=== PATIENT | female | born 1980 | race Caucasian/White ===

== ENCOUNTER 2016-09-20 08:00 | Emergency (ER) | payer BC ==
--- NOTE | 2016-09-20 09:45 | UC ---
Ear Complaint HPI - HPI Summary HPI Summary: The patient comes in today for: 1. Right ear pain: Onset: 7 days. Palliative/provocative: Nothing makes it better or worse. Quality: Ache Region: Right ear. Severity: 2/10 Time: Constant. Associated symptoms: Previous disease: Cerumen impactions in the past. Discharge: None. Hearing: Muffled Perforation hx:None. * - History of Current Complaint Chief Complaint: UCEar Stated Complaint: EAR PAIN Time Seen by Provider: 09/20/16 09:38 Hx Obtained From: Patient Hx Last Menstrual Period: last week - Allergies/Home Medications Allergies/Adverse Reactions: Allergies Allergy/AdvReac Type Severity Reaction Status Date / Time No Known Allergies Allergy Verified 04/17/14 08:20 Home Medications: Home Medications NK [No Home Medications Reported] 09/20/16 [History Confirmed 09/20/16] PMH/Surg Hx/FS Hx/Imm Hx Previously Healthy: Yes Endocrine History Of: Denies: Diabetes, Thyroid Disease, Hyperthyroidism, Hypothyroidism, Dyslipidemia Cardiovascular History Of: Denies: Cardiac Disorders, Hypertension, Pacemaker/ICD, Myocardial Infarction , Congestive Heart Failure, Atrial Fibrillation, Deep Vein Thrombosis, Bleeding Disorders Respiratory History Of: Denies: COPD, Asthma, Bronchitis, Pneumonia, Pulmonary Embolism GI/ History Of: Denies: Gastroesophageal Reflux, Ulcer, Gastrointestinal Bleed, Gall Bladder Disease, Kidney Stones, Diverticulitis, Renal Disease, Urosepsis Neurological History Of: Denies: TIA, CVA, Dementia, Seizures, Migraine Psychological History Of: Denies: Anxiety, Depression, Bipolar Disorder, Schizophrenia, Post Traumatic Stress Disorder Cancer History Of: Denies: Lung Cancer, Colorectal Cancer, Breast Cancer, Prostate Cancer, Cervical Cancer Other History Of: Negative For: HIV, Hepatitis B, Hepatitis C, Anticoagulant Therapy - Surgical History Surgical History: None - Family History Known Family History: Positive: Hypertension Negative: Cardiac Disease - Social History Occupation: Employed Full-time Alcohol Use: Occasionally Substance Use Type: None Smoking Status (MU): Never Smoked Tobacco Review of Systems Constitutional: Negative Skin: Negative Eyes: Negative ENT: Ear Ache Respiratory: Negative Cardiovascular: Negative Gastrointestinal: Negative Genitourinary: Negative Motor: Negative All Other Systems Reviewed And Are Negative: Yes Physical Exam Triage Information Reviewed: Yes Appearance: Well-Appearing, No Pain Distress, Well-Nourished Vital Signs: Initial Vital Signs Temp 98.0 F 09/20/16 08:28 Pulse 54 09/20/16 08:28 Resp 16 09/20/16 08:28 BP 114/68 09/20/16 08:28 Pulse Ox 100 09/20/16 08:28 Vital Signs Reviewed: Yes Eyes: Positive: Conjunctiva Clear. Negative: Discharge ENT: Positive: Hearing grossly normal. Negative: Pharyngeal erythema, Nasal congestion, Nasal drainage - Ears: Left ear: TM jacobson and translucent--no canal erythema or edema. Right ear: Cerumen impaction in place., Tonsillar swelling, Tonsillar exudate Dental: Negative: Gross Decay/Caries @, Dental Fracture @ Neck: Positive: Supple, Nontender, No Lymphadenopathy. Negative: Nuchal Rigidity Respiratory: Positive: Chest non-tender, Lungs clear, No respiratory distress, No accessory muscle use. Negative: Crackles, Wheezing Cardiovascular: Positive: RRR, No Murmur Abdomen Description: Positive: Nontender, No Organomegaly, Soft. Negative: Distended, Guarding Musculoskeletal: Positive: Strength Intact, ROM Intact, No Edema Neurological: Positive: Alert, Muscle Tone Normal Psychological: Positive: Age Appropriate Behavior, Consolable Skin: Negative: rashes, breakdown Re-Evaluation - Re-Evaluation First Eval Change: Improved - after ear irrigation, TM was jacobson and translucent with no marked canal erythema or edema. No tragal pressure tenderness. Ear Complaint Course/Dx - Differential Dx/Diagnosis Differential Diagnosis/HQI/PQRI: Cerumen Impaction, Otitis Externa, Otitis Media Provider Diagnoses: Right ear cerumen impaction (resolved). Discharge - Discharge Plan Condition: Stable Disposition: HOME Patient Education Materials: Cerumen Impaction (ED) Referrals: Dominik Machuca MD [Primary Care Provider] - As Soon As Possible (Please see your primary care provider as he or she has previously recommended. If you have any problems and can't get in timely, you can come back to see us.)
[2016-09-20 10:03] VITALS: BP 121/77
== END 2016-09-20 10:14 | disposition home or self-care (01) ==
LOC: UCEAST 08:00
DX: H61.21 Impacted cerumen, right ear (principal)
CPT/HCPCS: 99213; G0463

== ENCOUNTER 2017-04-05 19:20 | Emergency (ER) | payer BC ==
[2017-04-05 19:30] VITALS: BP 121/66
--- NOTE | 2017-04-08 19:16 | UC ---
Progress - Progress Note Progress Note: negative culture of throat; was prescribed amoxicillin--could stop taking antibiotic.
--- NOTE | 2017-04-08 19:26 | UC ---
Huong Maldonado Alfonso, scribed for Tegan Vazquez DO on 04/05/17 at 2002 . Throat Pain/Nasal Teddy HPI - HPI Summary HPI Summary: This patient is a 36 year old F presenting to [facility] accompanied by children with a chief complaint of sore throat since 2 days ago. She states this feels like a previous sore throat. The patient rates the pain 4/10 in severity. Symptoms alleviated by nothing. Patient reports chills, tiredness, dizziness ( resolved). Patient denies loss of appetite, fever, sinus congestion, nasal drainage, abdominal pain, N/V, headache, rash, SOB, and CP. She denies recent sick contacts. Medications reviewed this visit. - History of Current Complaint Chief Complaint: UCRespiratory Stated Complaint: SORE THROAT Time Seen by Provider: 04/05/17 19:46 Hx Obtained From: Patient Hx Last Menstrual Period: <1 WEEK AGO Onset/Duration: Gradual Onset, Lasting Days - 2, Still Present Severity: Moderate Pain Intensity: 4 Pain Scale Used: 0-10 Numeric Associated Signs & Symptoms: Positive: Other - Patient reports chills, tiredness , dizziness (resolved). Patient denies loss of appetite, fever, sinus congestion , nasal drainage, abdominal pain, N/V, headache, rash, SOB, and CP. - Allergies/Home Medications Allergies/Adverse Reactions: Allergies Allergy/AdvReac Type Severity Reaction Status Date / Time No Known Allergies Allergy Verified 04/05/17 19:29 PMH/Surg Hx/FS Hx/Imm Hx Previously Healthy: Yes Other History Of: Negative For: HIV, Hepatitis B, Hepatitis C, Anticoagulant Therapy - Surgical History Surgical History: None - Family History Known Family History: Positive: Hypertension Negative: Cardiac Disease - Social History Alcohol Use: Occasionally Substance Use Type: None Smoking Status (MU): Never Smoked Tobacco Review of Systems Constitutional: Chills, Other - tiredness ENT: Sore Throat Neurological: Other - Dizziness All Other Systems Reviewed And Are Negative: Yes Physical Exam Triage Information Reviewed: Yes Appearance: Well-Appearing, No Pain Distress, Well-Nourished Vital Signs: Initial Vital Signs Temp 98.4 F 04/05/17 19:27 Pulse 67 04/05/17 19:27 Resp 16 04/05/17 19:27 BP 121/66 04/05/17 19:27 Pulse Ox 100 04/05/17 19:27 Vital Signs Reviewed: Yes Eyes: Positive: Conjunctiva Clear. Negative: Discharge ENT: Positive: Hearing grossly normal, Pharyngeal erythema, TMs normal, Tonsillar swelling, Tonsillar exudate. Negative: Trismus, Muffled/hoarse voice Neck: Positive: Supple, Nontender Respiratory: Positive: Chest non-tender, Lungs clear, Normal breath sounds, No respiratory distress Cardiovascular: Positive: RRR, No Murmur Abdomen Description: Positive: Nontender, Soft Bowel Sounds: Positive: Present Musculoskeletal Exam: Normal Musculoskeletal: Positive: Strength Intact Neurological: Positive: Alert, Muscle Tone Normal Psychological: Positive: Age Appropriate Behavior Skin Exam: Normal Skin: Positive: Other - Normal, Warm, Dry, Normal color Throat Pain/Nasal Course/Dx - Course Assessment/Plan: This patient is a 36 year old F presenting to [facility] accompanied by children with a chief complaint of sore throat since 2 days ago. She states this feels like a previous sore throat. The patient rates the pain 4/10 in severity. Symptoms alleviated by nothing. Patient reports chills, tiredness, dizziness (resolved). Patient denies loss of appetite, fever, sinus congestion, nasal drainage, abdominal pain, N/V, headache, rash, SOB, and CP. She denies recent sick contacts. Medications reviewed this visit. Group A Strep Rapid negative. Patient will be discharged with prescription for Amoxicillin and Magic Mouth Wash and follow up from PCP. The patient is agreeable with this plan. - Differential Dx/Diagnosis Provider Diagnoses: pharyngitis Discharge - Discharge Plan Condition: Stable Disposition: HOME Prescriptions: Amoxicillin PO (*) [Amoxicillin 500 MG CAP*] 500 mg PO Q12H #20 cap Magic Mouth Was-ABIGAIL/MAAL/LIDO* 5 ml SWISH SPIT QID PRN #100 ml PRN Reason: Pain Patient Education Materials: Pharyngitis (ED) Referrals: Dominik Machuca MD [Primary Care Provider] - Additional Instructions: YOUR BLOOD PRESSURE WAS ELEVATED AT THIS VISIT THIS DOES NOT MEAN THAT YOU HAVE HIGH BLOOD PRESSURE. FOLLOW UP WITH YOUR PRIMARY CARE PROVIDER WITHIN ONE WEEK FOR THIS. The documentation as recorded by the Huong molina Alfonso accurately reflects the service I personally performed and the decisions made by , Tegan Vazquez DO.
== END 2017-04-05 20:35 | disposition home or self-care (01) ==
LOC: UCEAST 19:20
DX: J02.9 Acute pharyngitis, unspecified (principal)
CPT/HCPCS: 87070; 87651; 99212; G0463

== ENCOUNTER 2017-10-09 02:17 | Emergency (ER) | payer BC, OTHER ==
[2017-10-09 02:48] VITALS: BP 112/86
--- NOTE | 2017-10-09 06:03 | ED ---
Bridget Maldonado Rebecca, scribed for Troy Louise MD on 10/09/17 at 0234 . - HPI Summary HPI Summary: Pt is a 37 y/o F who presents to ED s/p needle stick to the left hand. 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 Pt then noticed she pricked her finger with the needle. She had checked the pt's medical history and did not see anything concerning, though she is an immigrant so her medical records are not full, per pt. Source pt is not . Washed the area [employer]ESSER. Tetanus is UTD. Right hand dominant. - History of Current Complaint Chief Complaint: EDExposureBodyFluid Stated Complaint: NEEDLE STICK Time Seen by Provider: 10/09/17 02:28 Date of Incident: 10/09/17 Time of Incident: 01:20 Job Performing at Time of Incident: Nurse - blood draw Mechanism of Injury: Needlestick Body Fluid Exposure: Blood Treatment [employer]: Cleaned Wound PMH/Surg Hx/FS Hx/Imm Hx Endocrine/Hematology History: Denies: Hx Anticoagulant Therapy, Hx Diabetes, Hx Thyroid Disease Cardiovascular History: Denies: Hx Congestive Heart Failure, Hx Deep Vein Thrombosis, Hx Hypertension , Hx Myocardial Infarction, Hx Pacemaker/ICD Respiratory History: Denies: Hx Asthma, Hx Chronic Obstructive Pulmonary Disease (COPD), Hx Lung Cancer, Hx Pneumonia, Hx Pulmonary Embolism GI History: Denies: Hx Gall Bladder Disease, Hx Gastrointestinal Bleed, Hx Ulcer, Hx Urosepsis History: Denies: Hx Kidney Stones, Hx Renal Disease Musculoskeletal History: Denies: Hx Rheumatoid Arthritis, Hx Osteoporosis Neurological History: Denies: Hx Dementia, Hx Migraine, Hx Seizures, Hx Transient Ischemic Attacks (TIA) Psychiatric History: Denies: Hx Anxiety, Hx Depression, Hx Schizophrenia, Hx Bipolar Disorder Infectious Disease History: No Infectious Disease History: Denies: Hx Clostridium Difficile, Hx Hepatitis, Hx Human Immunodeficiency Virus (HIV), Hx of Known/Suspected MRSA, Hx Shingles, Hx Tuberculosis, Hx Known/ Suspected VRE, Hx Known/Suspected VRSA, History Other Infectious Disease, Traveled Outside the [place] in Last 30 Days - Family History Known Family History: Positive: Hypertension Negative: Cardiac Disease - Social History Alcohol Use: Occasionally Substance Use Type: Reports: None Smoking Status (MU): Never Smoked Tobacco Review of Systems Negative: Fever Positive: Other - Needlestick All Other Systems Reviewed And Are Negative: Yes Physical Exam - Summary Physical Exam Summary: Appearance: Well appearing, no pain distress Skin: warm, dry, reflects adequate perfusion, just proximal to the nail plate on her left long finger, there is a little needle prick injury Head/face: normal Eyes: EOMI, JUNO ENT: normal Neck: supple, non-tender Respiratory: CTA, breath sounds present Cardiovascular: RRR, pulses symmetrical Abdomen: non-tender, soft Bowel Sounds: present Musculoskeletal: normal, strength/ROM intact Neuro: normal, sensory motor intact, A&Ox3 Triage Information Reviewed: Yes Vital Signs On Initial Exam: Initial Vitals Temp Pulse Resp BP Pulse Ox 98.1 F 80 16 135/83 100 10/09/17 02:21 10/09/17 02:21 10/09/17 02:21 10/09/17 02:21 10/09/17 02:21 Vital Signs Reviewed: Yes Diagnostics - Vital Signs Vital Signs Temp Pulse Resp BP Pulse Ox 10/09/17 02:21 98.1 F 80 16 135/83 100 - Laboratory Lab Statement: Any lab studies that have been ordered have been reviewed, and results considered in the medical decision making process. Needlestick Course/Dx - Course Course Of Treatment: Pt with hollow bore needle injury. Low risk pt who also proved to be HIV neg. Pt wished to not receive PEP after counseling. Reviewed the [facility] PEPline site. Assessment/Plan: Source pt is confirmed HIV negative. - Diagnoses Provider Diagnoses: Needle stick injury Discharge - Sign-Out/Discharge Documenting (check all that apply): Discharge/Admit/Transfer - Discharge - Discharge Plan Condition: Good Disposition: HOME Patient Education Materials: Needle Stick Injuries (ED) Referrals: Dominik Machuca MD [Primary Care Provider] - - Billing Disposition and Condition Condition: GOOD Disposition: HOME The documentation as recorded by the Bridget molina Rebecca accurately reflects the service I personally performed and the decisions made by , Troy Louise MD.
== END 2017-10-09 02:47 | disposition home or self-care (01) ==
LOC: ED 02:17
DX: S61.432A Puncture wound without foreign body of left hand, initial encounter (principal); W46.1XXA Contact with contaminated hypodermic needle, initial encounter; Y92.239 Unspecified place in hospital as the place of occurrence of the external cause
CPT/HCPCS: 36415; 86703; 86706; 86803; 87340; 99281

== ENCOUNTER 2017-11-07 14:08 | Emergency (ER) | payer BC, OTHER ==
[2017-11-07 14:24] VITALS: BP 113/73
--- NOTE | 2017-11-07 20:01 | UC ---
Bridget Maldonado Rebecca, scribed for Damian Gipson MD on 11/07/17 at 1541 . General HPI - HPI Summary HPI Summary: Pt is a 37 y/o F who presents to ED c/o sore throat. Pain has been present since Sunday night (2 days ago) and has been gradually worsening since onset. Took 400 mg Ibuprofen at 1300 today which alleviated symptoms slightly. Sx aggravated by nothing. Additionally c/o BERUMEN located "behind my eyes," rhinorrhea (clear, started today), and slight nonproductive cough. Denies ear pain, fever, chills, neck pain, chest congestion, abd pain, N/V/D, and rash. No PMHx of asthma or hay fever. - History of Current Complaint Chief Complaint: UCRespiratory Stated Complaint: SORE THROAT, HEADACHE Time Seen by Provider: 11/07/17 15:34 Hx Obtained From: Patient Hx Last Menstrual Period: <1 WEEK AGO Onset/Duration: Gradual Onset, Lasting Days - 2 days, Still Present Pain Location at: Throat, head Aggravating: Nothing Alleviating: Ibuprofen Associated Signs & Symptoms: Positive: Cough, Headache, Other - Sore throat - Allergy/Home Medications Allergies/Adverse Reactions: Allergies Allergy/AdvReac Type Severity Reaction Status Date / Time No Known Allergies Allergy Verified 11/07/17 14:24 PMH/Surg Hx/FS Hx/Imm Hx - Additional Past Medical History Additional PMH: NEGATIVE PMHx: Asthma, HTN, DM, COPD Other History Of: Negative For: HIV, Hepatitis B, Hepatitis C, Anticoagulant Therapy - Surgical History Surgical History: None - Family History Known Family History: Positive: Hypertension Negative: Cardiac Disease - Social History Alcohol Use: Weekly Substance Use Type: None Smoking Status (MU): Never Smoked Tobacco Review of Systems Constitutional: Negative Skin: Negative Eyes: Negative ENT: Sore Throat, Nasal Discharge - clear Respiratory: Cough Cardiovascular: Negative Gastrointestinal: Negative Genitourinary: Negative Motor: Negative Neurovascular: Negative Musculoskeletal: Negative Neurological: Headache Psychological: Negative All Other Systems Reviewed And Are Negative: Yes - Comments Additional Review of Systems Comments: NEGATIVE: Ear pain, fever, chills, neck pain, chest congestion, abd pain, N/V/D , and rash Physical Exam - Summary Physical Exam Summary: General: well-appearing, no pain distress Skin: warm, color reflects adequate perfusion, dry Head: normal Eyes: EOMI, JUNO ENT: posterior pharynx is erythematous Neck: supple, nontender Respiratory: CTA, breath sounds present Cardiovascular: RRR Abdomen: soft, nontender Bowel: present Musculoskeletal: normal, strength/ROM intact Neurological: sensory/motor intact, A&O x3 Psychological: affect/mood appropriate Triage Information Reviewed: Yes Vital Signs: Initial Vital Signs Temp 98.6 F 11/07/17 14:21 Pulse 89 11/07/17 14:21 Resp 18 11/07/17 14:21 BP 113/73 11/07/17 14:21 Pulse Ox 100 11/07/17 14:21 Vital Signs Reviewed: Yes Re-Evaluation - Re-Evaluation First Eval Re-Evaluation Time: 16:12 Comment: Discussed results thus far Course/Dx - Differential Dx - Multi-Symptom Provider Diagnoses: PHARYNGITIS. UPPER RESPIRATORY TRACT INFECTION. HEADACHE Discharge - Sign-Out/Discharge Documenting (check all that apply): Discharge/Admit/Transfer - Discharge - Discharge Plan Condition: Stable Disposition: HOME Patient Education Materials: Pharyngitis (ED), Acute Headache (ED) Forms: *Work Release Referrals: Dominik Machuca MD [Primary Care Provider] - Additional Instructions: FOLLOW UP WITH YOUR DOCTOR IF NOT COMPLETELY IMPROVED. GET RECHECKED FOR ANY WORSENING OF YOUR CONDITION OR QUESTIONS OR CONCERNS. - Billing Disposition and Condition Condition: STABLE Disposition: HOME The documentation as recorded by the Bridget molina Rebecca accurately reflects the service I personally performed and the decisions made by me, Damian Gipson MD.
== END 2017-11-07 16:24 | disposition home or self-care (01) ==
LOC: UCEAST 14:08
DX: J02.9 Acute pharyngitis, unspecified (principal); J06.9 Acute upper respiratory infection, unspecified; R51 Headache
CPT/HCPCS: 87651; 99211; G0463

== ENCOUNTER 2018-06-15 16:50 | Emergency (ER) | payer BC ==
[2018-06-15 17:04] VITALS: BP 120/69
--- NOTE | 2018-06-15 17:17 | UC ---
Upper Extremity HPI - HPI Summary HPI Summary: Fell today on hoverboard onto R arm. - History of Current Complaint Chief Complaint: UCUpperExtremity Stated Complaint: R WRIST INJURY Time Seen by Provider: 06/15/18 17:09 Hx Last Menstrual Period: [id number] Onset/Duration: Sudden Onset Pain Intensity: 3 Pain Scale Used: 0-10 Numeric Character: Sharp Aggravating Factor(s): Extension Alleviating Factor(s): OTC Meds Associated Signs And Symptoms: Negative: Swelling, Redness - Allergies/Home Medications Allergies/Adverse Reactions: Allergies Allergy/AdvReac Type Severity Reaction Status Date / Time No Known Allergies Allergy Verified 06/15/18 17:05 Home Medications: Home Medications Ibuprofen TAB* [Motrin TAB* 400 MG] 480 mg PO Q6H PRN 06/15/18 [History Confirmed 06/15/18] PMH/Surg Hx/FS Hx/Imm Hx Previously Healthy: Yes Other History Of: Negative For: HIV, Hepatitis B, Hepatitis C, Anticoagulant Therapy - Surgical History Surgical History: None - Family History Known Family History: Positive: Hypertension Negative: Cardiac Disease - Social History Alcohol Use: Weekly Substance Use Type: None Smoking Status (MU): Never Smoked Tobacco Review of Systems All Other Systems Reviewed And Are Negative: Yes Constitutional: Positive: Negative Skin: Negative: Bruising Musculoskeletal: Positive: Arthralgia - R wrist/forearm. Negative: Edema, Myalgia Neurological: Negative: Paresthesia, Numbness Physical Exam Triage Information Reviewed: Yes Appearance: Well-Appearing Vital Signs: Initial Vital Signs Temp 98.7 F 06/15/18 16:58 Pulse 72 06/15/18 16:58 Resp 16 06/15/18 16:58 BP 120/69 06/15/18 16:58 Pulse Ox 100 06/15/18 16:58 Cardiovascular: Negative: Delayed Capillary Refill - R fingers Musculoskeletal: Positive: No Edema, Strength Limited @ - due to pain at R wrist , ROM Limited @ - at R wrist due to pain Neurological: Positive: Muscle Tone Normal Upper Extremity Course/Dx - Course Course Of Treatment: Fall resulting in R wrist contusion. No fracture. ibu for pain. - Differential Dx/Diagnosis Differential Diagnosis/HQI/PQRI: Contusion, Fracture (Closed), Sprain Provider Diagnosis: Wrist injury, Wrist pain, acute Discharge - Sign-Out/Discharge Documenting (check all that apply): Patient Departure All imaging exams completed and their final reports reviewed: Yes - Discharge Plan Condition: Good Disposition: HOME Prescriptions: Ibuprofen [Ibu] 600 mg PO TID #21 tablet Patient Education Materials: Wrist Injury (ED) Forms: *Work Release Referrals: Hernando Briones MD [Medical Doctor] - Additional Instructions: If wrist pain persists or worsens please follow up w/ Ortho - Billing Disposition and Condition Condition: GOOD Disposition: Home
== END 2018-06-15 17:45 | disposition home or self-care (01) ==
LOC: UCEAST 16:50
DX: M25.531 Pain in right wrist (principal); W17.89XA Other fall from one level to another, initial encounter; Y93.89 Activity, other specified; Y92.9 Unspecified place or not applicable
CPT/HCPCS: 99212; G0463

== ENCOUNTER 2019-05-11 09:05 | Emergency (ER) | payer BC ==
[2019-05-11 09:21] VITALS: BP 123/82
--- NOTE | 2019-05-11 09:51 | UC ---
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 p/w let upper eyelid pain and swelling x3 days, states she gets styes from time to time but this time is a bit worse, denies drainage, no visual changes - History of Current Complaint Chief Complaint: UCEye Stated Complaint: EYE ISSUE Time Seen by Provider: 05/11/19 09:33 Hx Last Menstrual Period: 05/05/19 Pain Intensity: 2 - Allergies/Home Medications Allergies/Adverse Reactions: Allergies Allergy/AdvReac Type Severity Reaction Status Date / Time No Known Allergies Allergy Verified 06/15/18 17:05 PMH/Surg Hx/FS Hx/Imm Hx Previously Healthy: Yes Other History Of: Negative For: HIV, Hepatitis B, Hepatitis C, Anticoagulant Therapy - Surgical History Surgical History: None - Family History Known Family History: Positive: Hypertension Negative: Cardiac Disease - Social History Alcohol Use: Occasionally Substance Use Type: None Smoking Status (MU): Never Smoked Tobacco Review of Systems All Other Systems Reviewed And Are Negative: Yes Constitutional: Positive: Negative Skin: Positive: Negative Eyes: Positive: Other - rihgt upper lid redness and soreness. Negative: Drainage ENT: Positive: Negative Respiratory: Positive: Negative Cardiovascular: Positive: Negative Gastrointestinal: Positive: Negative Genitourinary: Positive: Negative Physical Exam - Summary Physical Exam Summary: Reviewed: Yes Eye Exam: Normal Eyes: Positive: right upper lid blepharitis ENT: Positive: Normal ENT inspection Neck: Positive: Supple Respiratory Exam: Normal Respiratory: Positive: Lungs clear, Normal breath sounds Cardiovascular Exam: Normal Cardiovascular: Positive: RRR Abdomen: NT/ND Musculoskeletal Exam: Normal Neurological Exam: Normal Psychological Exam: Normal Skin Exam: Normal Vital Signs: Initial Vital Signs Temp 37.5 C 05/11/19 09:14 Pulse 72 05/11/19 09:14 Resp 16 05/11/19 09:14 BP 123/82 05/11/19 09:14 Pulse Ox 100 05/11/19 09:14 Eye Complaint Course/Dx - Differential Dx/Diagnosis Provider Diagnosis: Blepharitis of eyelid of right eye Discharge ED - Sign-Out/Discharge Documenting (check all that apply): Patient Departure All imaging exams completed and their final reports reviewed: No Studies - Discharge Plan Condition: Stable Disposition: HOME Prescriptions: Neomycin/Polymyxin B/Dexametha [Maxitrol Eye Ointment] 3.5 gm OP TID 7 Days #1 tube Patient Education Materials: Blepharitis (ED) Forms: *Work Release Referrals: Dominik Machuca MD [Primary Care Provider] - - Billing Disposition and Condition Condition: STABLE Disposition: Home
== END 2019-05-11 09:57 | disposition home or self-care (01) ==
LOC: UCEAST 09:05
DX: H01.001 Unspecified blepharitis right upper eyelid (principal)
CPT/HCPCS: 99212; G0463